=== PATIENT | male | born 1975 | race Caucasian/White ===

== ENCOUNTER 2022-11-27 06:34 | Outpatient (OUT) | payer OTHER, SELFPAY ==
[2022-11-27 07:43] LABS: Basophils Percent Auto 0.8 % (0.2-2.0); Eosinophils Absolute Auto 0.1 10^3/uL (0.0-0.7); Eosinophils Percent Auto 1.8 % (0.9-7.0); Hematocrit 45.1 % (42.0-54.0); Hemoglobin 15.2 g/dL (14.0-18.0); Lymphocytes Absolute Auto 2.2 10^3/uL (1.2-3.8); Lymphocytes Percent Auto 44.3 % (20.5-60.0); Mean Corpuscular HGB Conc 33.7 g/dL (29.9-35.2); Mean Corpuscular Volume 89.1 fL (80.0-94.0); Mean Platelet Volume 9.5 fL (9.5-13.5); Monocytes Absolute Auto 0.5 10^3/uL (0.3-0.8); Monocytes Percent Auto 9.1 % (1.7-12.0); Neutrophils Absolute Auto 2.2 10^3/uL (1.4-6.5); Platelet Count 282 10^3/uL (150-450); Red Blood Count 5.06 10^6/uL (4.70-6.10); Red Cell Distribution Width 11.8 % (11.0-15.0)
[2022-11-27 08:03] LABS: Alanine Aminotransferase 21 U/L (16-63); Albumin Globulin Ratio 1.2; Albumin Level 3.9 g/dL (3.4-5.0); Alkaline Phosphatase 97 U/L (46-116); Anion Gap 13.2; Aspartate Amino Transferase 13 U/L (15-37); BUN Creatinine Ratio 20.9; Bilirubin Total 0.4 mg/dL (0.2-1.0); Calcium 8.9 mg/dL (8.5-10.1); Chloride 104 mmol/L (98-107); Chol HDL Ratio 4.3; Cholesterol 163 mg/dL (<=200); Estimated GFR (African America >60 (>=60); Estimated GFR (Non-African Ame >60 (>=60); Globulin 3.3 g/dL; Glucose 91 mg/dL (74-106); HDL Cholesterol 38 mg/dL (40-60); Potassium 4.2 mmol/L (3.5-5.1); Sodium 141 mmol/L (136-145); Total Protein 7.2 g/dL (6.4-8.2); Triglycerides 123 mg/dL (<=150); VLDL CHOLESTEROL 24.6 mg/dL
== END 2022-11-27 06:35 | disposition home or self-care (01) ==
PROVIDERS: PCP Family Medicine; Visit Provider Family Medicine
DX: Z00.00 Encounter for general adult medical examination without abnormal findings (principal)
CPT/HCPCS: 36415; 80053; 80061; 85025

== ENCOUNTER 2023-12-12 06:32 | Outpatient (OUT) | payer OTHER, SELFPAY ==
--- OUTSIDE RECORDS SUMMARY | 2023-12-02 06:35 | XMS_ITS | CCD ---
Author Organization [facility] Care Team Providers Care Senior Online Marketing Manager Name Role Phone DR NAVEEN DELCID Attending Unavailable DR NAVEEN DELCID Consulting Unavailable DR NAVEEN DELCID Primary Care Unavailable DR NAVEEN DELCID Admitting Unavailable Naveen Delcid Unavailable Maxim Serrano Unavailable Allergies Allergy Classification Reported Allergen(s) Allergy Type Date of Onset Reaction(s) Facility (7 sources) Acetaminophen / HYDROcodone Drug Allergy Unknown [facility] (3 sources) Coconut extract Drug Allergy 05-05-19 24 Unknown Reaction [facility] (11 sources) Coconut Flavor Drug allergy Unknown [facility] Other (7 sources) Vicodin *ANALGESICS - OPIOID* Propensity to adverse reactions 05-20-19 14 Unknown [facility] Other (2 sources) patient allergy list reviewed by nurse or physicia Propensity to adverse reactions 04-08-19 19 Comment:Done [employer] Other (2 sources) Allergies Reconciled Propensity to adverse reactions Unknown [employer] Other (2 sources) Acetaminophen Drug Allergy 05-05-19 24 Unknown Reaction [facility] (2 sources) HYDROcodone Drug Allergy 05-05-19 24 Unknown Reaction [facility] Medications Current Medications Medication Drug Class(es) Dates Sig (Normalized) Sig (Original) acetaminophen 325 mg / oxyCODONE hydrochloride 5 mg oral tablet (16 sources) Opioid Agonist Start: 2023 End: 08-05-2023 take 1 tablet by mouth once daily Oxycodone-Acetami nophen Active 1 TAB PO Daily August 05, 2023 Start: 05-04-2023 End: 2023 take 1 tablet by mouth every six hours Oxycodone-Acetaminophen Discontinued 1 T AB PO Every 6 hours May 04, 2023 12:00am 2023 2:26pm Start: 03-03-2023 take 1 tablet by erin th every six hours as needed Percocet 5-325 MG 1 tablet as needed Orally every 6 hrs prn for 30 days Feb, Active Start: 01-05-2023 take 1 tablet by erin th every six hours as needed Percocet 5-325 MG 1 tablet as needed Orally every 6 hrs prn for 30 days Dec, Active Start: 11-07-2022 take 1 tablet by erin th every six hours as needed Percocet 5-325 MG 1 tablet as needed Orally every 6 hrs prn for 30 days Oct, Active Start: 09-11-2022 take 1 tablet by erin th every six hours as needed Percocet 5-325 MG 1 tablet as needed Orally every 6 hrs prn for 30 days Sep, Active Start: 07-23-2022 take 1 tablet by erin th every six hours as needed Percocet 5-325 MG 1 tablet as needed Orally every 6 hrs prn for 30 days Jul, Active Start: 05-28-2022 take 1 tablet by erin th every six hours as needed Percocet 5-325 MG 1 tablet as needed Orally every 6 hrs prn for 30 days May, Active Start: 04-15-2022 take 1 tablet by erin th every six hours as needed Percocet 5-325 MG 1 tablet as needed Orally every 6 hrs prn for 30 days Apr, Active Start: 02-25-2022 take 1 tablet by erin th every six hours as needed Percocet 5-325 MG 1 tablet as needed Orally every 6 hrs prn for 30 days Feb, Active amoxicillin 500 mg oral capsule (5 sources) Penicillin-class Antibacterial Start: 11-27-2022 take 1 capsule by mouth every twelve hours Amoxicillin 500 MG 1 capsule Orally Twice a day for 7 days Nov, Active azithromycin 250 mg oral tablet (2 sources) Macrolide Antimicrobial Start: 02-16-2023 Azithromycin 250 MG as directed Orally 2 tabs po today, then 1 tab daily x 4 more days for 5 Feb, Active benzonatate 200 mg oral capsule (2 sources) Non-narcotic Antitussive Start: 02-16-2023 take 1 capsule by mouth every eight hours Benzonatate 200 MG 1 capsule Orally Three times a day for 10 day(s) Feb, Active cephalexin 500 mg oral capsule (1 source) Cephalosporin Antibacterial Start: 08-28-2023 take 500 mg by mouth three times daily Cephalexin Active 500 MG PO Three times daily 29 08August 28, 2023 12:00am 0.3 ml EPINEPHrine 1 mg/ml prefilled syringe (13 sources) alpha-Adrenergic Agonist, beta-Adrenergic Agonist, Catecholamine Start: 05-04-2023 Epinephrine Active IM May 04, 2023 12:00am as directed Injection prn EPINEPHrine 0.3 MG/0.3ML as directed Injection prn for 30 days Active EPINEPHrine 0.3 MG/0.3ML as directed Injection Active tadalafil 10 mg oral tablet (5 sources) Phosphodiesterase 5 Inhibitor Start: 11-27-2022 take 1 tablet by mouth every twenty-four hours Cialis 10 MG 1 tablet as needed Orally Once a day for 30 days Nov, Active valACYclovir 1000 mg oral tablet (13 sources) Herpesvirus Nucleoside Analog DNA Polymerase Inhibitor, Herpes Simplex Virus Nucleoside Analog DNA Polymerase Inhibitor, Herpes Zoster Virus Nucleoside Analog DNA Polymerase Inhibitor Start: 05-04-2023 Valacyclovir (Valtrex) 1 gram tablet Active 1000 MG PO Daily May 04, 2023 12:00am take 1 tablet by erin th every twenty-four hours Valtrex 1 GM 1 tablet Orally Once a day Not-Taking/PRN take 1 tablet by erin th every twenty-four hours Valtrex 1 GM 1 tablet Orally Once a day Not-Taking Problems Active Problems Problem Classification Problem Date Documented Date Episodic/Chronic Adjustment disorders (15 sources) Stress; Translations: [Reaction to severe stress, unspecified] 05-04-2023 Chronic Allergic reactions (13 sources) Allergy to bee venom; Translations: [Bee allergy status] Episodic Anxiety disorders (2 sources) Anxiety disorder; Translations: [Anxiety disorder, unspecified] Onset: 05-19-2013 Chronic Chronic obstructive pulmonary disease and bronchiectasis (14 sources) Bronchitis; Translations: [Bronchitis, not specified as acute or chronic] Episodic Disorders of teeth and jaw (14 sources) Infection of tooth; Translations: [Periapical abscess without sinus] Episodic Immunizations and screening for infectious disease (16 sources) Encounter for screening for infections with a predominantly sexual mode of transmission; Translations: [Herpes simplex type 2 infection] Onset: 08-13-2021 Episodic Miscellaneous mental health disorders (2 sources) Psychosexual dysfunction associated with inhibited sexual excitement; 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] Onset: 01-30-2015 Chronic Other circulatory disease (2 sources) Elevated blood-pressure reading without diagnosis of hypertension; Translations: [Elevated blood-pressure reading, without diagnosis of hypertension] Episodic Other connective tissue disease (2 sources) Pain in limb; Translations: [Pain in left finger(s)] Episodic Other male genital disorders (8 sources) Other male erectile dysfunction; Translations: [Other male erectile dysfunction] Chronic Other nutritional; endocrine; and metabolic disorders (11 sources) Overweight in adulthood with body mass index of 25 or more but less than 30; Translations: [Body mass index (BMI) 25.0-25.9, adult] Episodic Other nutritional; endocrine; and metabolic disorders (2 sources) Body mass index 25-29 - overweight; Translations: [Body mass index (BMI) 25.0-25.9, adult] Episodic Other skin disorders (1 source) Other seborrheic keratosis Episodic Otitis media and related conditions (20 sources) Dysfunction of eustachian tube; Translations: [Other specified disorders of Eustachian tube, unspecified ear] Episodic Residual codes; unclassified (17 sources) Tobacco user; Translations: [Tobacco use] Onset: 04-14-2017 05-04-2023 Episodic Spondylosis; intervertebral disc disorders; other back problems (20 sources) Lumbosacral radiculopathy; Translations: [Radiculopathy, lumbosacral region] Onset: 05-19-2013 Episodic Substance-related disorders (2 sources) Tobacco user; Translations: [Nicotine dependence, cigarettes, uncomplicated] Onset: 10-22-2015 Chronic Past or Other Problems Problem Classification Problem Date Documented Da te Episodic/Chronic Other aftercare (2 sources) Therapeutic drug level - finding; Translations: [Encounter for therapeutic drug level monitoring] Onset: 05-19-2013 Episodic Other non-traumatic joint disorders (2 sources) Hand joint pain; Translations: [Pain in joint, hand] Onset: 09-13-2013 Episodic Sprains and strains (2 sources) Neck sprain; Translations: [Neck sprain and strain] Onset: 05-19-2013 Episodic Results Test Name Value Interpretation Reference Range Qing mejia HERPES SIMPLEX 1/2 IGGon HSV 1 IgG, Type Spec 2.45 index Critically high 0.00-0.90 [facility] Comment on above: Result Comment: Nega tive <0.91 Equivocal 0.91 - 1.09 Positive >1.09 Note: Negative indicates no antibodies detected to HSV-1. Equivocal may suggest early infection. If clinically appropriate, retest at later date. Positive indicates antibodies detected to HSV-1. Performed By: #### H SV IGG #### [facility] [address] [address] [address] Sánchez Hanley HSV 2 IgG Type Spec 2.41 index Critically high 0.00-0.90 [facility] Comment on above: Result Comment: Nega tive <0.91 Equivocal 0.91 - 1.09 Positive >1.09 Note: Negative indicates no HSV-2 antibodies detected. Positive indicates HSV-2 antibodies detected. Equivocal and low positive HSV-2 screens (Index 0.91-5.00) may be false positive and are reflexed to supplemental testing in accordance with CDC guidelines. Performed By: #### H SV IGG #### [facility] [address] [address] [address] Sánchez Hanley HSV-2 IgG Supplemental Test Positive Abnormal Negative [facility] Comment on above: Result Comment: Note : Positive supplemental testing indicates the presence of detectable IgG antibodies to HSV-2. Negative supplemental testing does not confirm the presence of IgG antibodies to HSV-2; recommend re-testing in 2 to 4 weeks if clinically indicated. Performed By: #### H SV IGG #### [facility] [address] [address] [address] Sánchez Hanley HERPES SIMPLEX 1/2 IGMon HSV, IgM I/II Combination <0.91 Normal 0.00-0.90 [facility] Comment on above: Result Comment: Nega tive <0.91 Equivocal 0.91 - 1.09 Positive >1.09 Effective November 04, 2021 HSV, IgM I/II Combination will be made non-orderable. [facility] offers [id number] HSV 1 and 2-Spec Ab, IgG w/Rfx and [id number] HSV JOHN. Performed By: #### H SVIGM #### [facility] [address] [place] [address] Dr. Sánchez Hanley CBC AUTO DIFFon 08-08-2021 BASO # 0.0 103/ul Normal 0.0-0.1 [facility] Comment on above: Performed By: #### C BC #### [facility] [address] [place] [address] Dr. Sánchez Hanley Basophils/100 WBC (Bld) 0.5 % Normal 0.2-2.0 [facility] Comment on above: Performed By: #### C BC #### [facility] [address] [place] [address] Dr. Sánchez Hanley EO # 0.1 103/ul Normal 0.0-0.7 [facility] Comment on above: Performed By: #### C BC #### [facility] [address] [place] [address] Dr. Sánchez Hanley Eosinophils/100 WBC (Bld) 1.6 % Normal 0.9-7.0 [facility] Comment on above: Performed By: #### C BC #### [facility] [address] [place] [address] Dr. Sánchez Hanley Erythrocyte distribution width (RBC) [Ratio] 12.0 % Normal 11.0-15.0 [facility] Comment on above: Performed By: #### C BC #### [facility] [address] [place] [address] Dr. Sánchez Hanley Hematocrit (Bld) [Volume fraction] 43.6 % Normal 42.0-54.0 [facility] Comment on above: Performed By: #### C BC #### [facility] [address] [place] [address] Dr. Sánchez Hanley Hemoglobin (Bld) [Mass/Vol] 14.5 g/dL Normal 14.0-18.0 [facility] Comment on above: Performed By: #### C BC #### [facility] [address] [place] [address] Dr. Sánchez Hanley IG # 0.02 10e3/ul Normal 0.00-0.03 [facility] Comment on above: Performed By: #### C BC #### [facility] [address] [place] [address] Dr. Sánchez Hanley IG % 0.3 % Normal 0.0-0.5 [facility] Comment on above: Performed By: #### C BC #### [facility] [address] [place] [address] Dr. Sánchez Hanley LYMPH # 2.3 103/ul Normal 1.2-3.8 [facility] Comment on above: Performed By: #### C BC #### [facility] [address] [place] [address] Dr. Sánchez Hanley Lymphocytes/100 WBC (Bld) 29.8 % Normal 20.5-60.0 [facility] Comment on above: Performed By: #### C BC #### [facility] [address] [place] [address] Dr. Sánchez Hanley MANUAL DIFF REQ NO Normal [facility] Comment on above: Performed By: #### C BC #### [facility] [address] [place] [address] Dr. Sánchez Hanley MCH (RBC) [Entitic mass] 29.8 pg Normal 25.9-34.0 [facility] Comment on above: Performed By: #### C BC #### [facility] [address] [place] [address] Dr. Sánchez Hanley MCHC (RBC) [Mass/Vol] 33.3 g/dL Normal 29.9-35.2 [facility] Comment on above: Performed By: #### C BC #### [facility] [address] [place] [address] Dr. Sánchez Hanley MCV (RBC) [Entitic vol] 89.5 fL Normal 80.0-94.0 [facility] Comment on above: Performed By: #### C BC #### [facility] [address] [place] [address] Dr. Sánchez Hanley MONO # 0.6 103/ul Normal 0.3-0.8 [facility] Comment on above: Performed By: #### C BC #### [facility] [address] [place] [address] Dr. Sánchez Hanley Monocytes/100 WBC (Bld) 7.8 % Normal 1.7-12.0 [facility] Comment on above: Performed By: #### C BC #### [facility] [address] [place] [address] Dr. Sánchez Hanley NEUT # 4.7 103/ul Normal 1.4-6.5 [facility] Comment on above: Performed By: #### C BC #### [facility] [address] [place] [address] Dr. Sánchez Hanley Neutrophils/100 WBC (Bld) 60.0 % Normal 43.0-75.0 [facility] Comment on above: Performed By: #### C BC #### [facility] [address] [place] [address] Dr. Sánchez Hanley Platelet mean volume (Bld) [Entitic vol] 9.0 fL Critically low 9.5-13.5 [facility] Comment on above: Performed By: #### C BC #### [facility] [address] [place] [address] Dr. Sánchez Hanley PLT 240 103/ul Normal 150-450 [facility] Comment on above: Performed By: #### C BC #### [facility] [address] [place] [address] Dr. Sánchez Hanley RBC 4.87 106/ul Normal 4.70-6.10 [facility] Comment on above: Performed By: #### C BC #### [facility] [address] [place] [address] Dr. Sánchez Hanley WBC 7.7 103/ul Normal 4.0-11.0 [facility] Comment on above: Performed By: #### C BC #### [facility] [address] [place] [address] Dr. Sánchez Hanley LIPID PROFILEon 08-08-2021 CHOL-HDL RATIO NORM SEE BELOW Normal [facility] Comment on above: Result Comment: 3.3 - 4.4 LOW RISK 4.4 - 7.1 AVERAGE RISK 7.1 - 11.0 MODERATE RISK >11.0 HIGH RISK Performed By: #### C MP, LIPID #### [facility] [address] [address] [address] Sánchez Hanley Cholesterol [Mass/Vol] 166 mg/dL Normal <=200 [facility] Comment on above: Performed By: #### C MP, LIPID #### [facility] [address] [address] [address] Sánchez Hanley Cholesterol in HDL [Mass/Vol] 34 mg/dL Critically low 40-60 [facility] Comment on above: Performed By: #### C MP, LIPID #### [facility] [address] [address] [address] Sánchez Hanley Cholesterol in LDL [Mass/Vol] 108.8 mg/dL Normal [facility] Comment on above: Performed By: #### C MP, LIPID #### [facility] [address] [address] [address] Sánchez Hanley Cholesterol.total/C holesterol in HDL [Mass ratio] 4.9 {ratio} Normal [facility] Comment on above: Performed By: #### C MP, LIPID #### [facility] [address] [address] [address] Sánchez Hanley HDL NORMAL > or = 60 mg/dl - LO W CARDIOVASCULAR RISK <40 mg/dl - HIGH CARDIOVASCULAR RISK Normal [facility] Comment on above: Performed By: #### C MP, LIPID #### [facility] [address] [address] [address] Sánchez Hanley LDL CALC NORMAL SEE BELOW Normal [facility] Comment on above: Result Comment: <100 mg/dl OPTIMAL 100 - 129 mg/dl NEAR OR ABOVE OPTIMAL 130 - 159 mg/dl BORDERLINE HIGH 160 - 189 mg/dl HIGH >190 mg/dl VERY HIGH Performed By: #### C MP, LIPID #### [facility] [address] [address] [address] Sánchez Hanley Triglyceride [Mass/Vol] 116 mg/dL Normal <=150 [facility] Comment on above: Performed By: #### C MP, LIPID #### [facility] [address] [address] [address] Sánchez Hanley VLDL CALC 23.2 mg/dL Normal [facility] Comment on above: Performed By: #### C MP, LIPID #### [facility] [address] [place] [address] Dr. Sánchez Hanley PROF 14(COMP METB)on 022 Albumin [Mass/Vol] 3.8 g/dL Normal 3.4-5.0 [facility] Comment on above: Performed By: #### C MP, LIPID #### [facility] [address] [place] [address] Dr. Sánchez Hanley Albumin/Globulin [Mass ratio] 1.2 {ratio} Normal [facility] Comment on above: Performed By: #### C MP, LIPID #### [facility] [address] [place] [address] Dr. Sánchez Hanley ALP [Catalytic activity/Vol] 91 U/L Normal 46-116 [facility] Comment on above: Performed By: #### C MP, LIPID #### [facility] [address] [place] [address] Dr. Snáchez Hanley ALT [Catalytic activity/Vol] 27 U/L Normal 16-63 [facility] Comment on above: Performed By: #### C MP, LIPID #### [facility] [address] [place] [address] Dr. Sánchez Hanley Anion gap [Moles/Vol] 10.4 mmol/L Normal [facility] Comment on above: Performed By: #### C MP, LIPID #### [facility] [address] [place] [address] Dr. Sánchez Hanley AST [Catalytic activity/Vol] 24 U/L Normal 15-37 [facility] Comment on above: Performed By: #### C MP, LIPID #### [facility] [address] [place] [address] Dr. Sánchez Hanley Bilirubin [Mass/Vol] 0.2 mg/dL Normal 0.2-1.0 [facility] Comment on above: Performed By: #### C MP, LIPID #### [facility] [address] [place] [address] Dr. Sánchez Hanley Calcium [Mass/Vol] 8.9 mg/dL Normal 8.5-10.1 [facility] Comment on above: Performed By: #### C MP, LIPID #### [facility] [address] [place] [address] Dr. Sánchez Hanley Chloride [Moles/Vol] 108 mmol/L Critically high 98-107 [facility] Comment on above: Performed By: #### C MP, LIPID #### [facility] [address] [place] [address] Dr. Sánchez Hanley CO2 [Moles/Vol] 27.7 mmol/L Normal 21.0-32.0 [facility] Comment on above: Performed By: #### C MP, LIPID #### [facility] [address] [place] [address] Dr. Sánchez Hanley Creatinine [Mass/Vol] 0.86 mg/dL Normal 0.70-1.30 [facility] Comment on above: Performed By: #### C MP, LIPID #### [facility] [address] [place] [address] Dr. Sánchez Hanley EGFR-AF NEW ZEALANDER >60 Normal >=60 [facility] Comment on above: Performed By: #### C MP, LIPID #### [facility] [address] [place] [address] Dr. Sánchez Hanley EGFR-NON AF [place] ZEALANDER >60 Normal >=60 [facility] Comment on above: Performed By: #### C MP, LIPID #### [facility] [address] [place] [address] Dr. Sánchez Hanley Globulin (S) [Mass/Vol] 3.3 g/dL Normal [facility] Comment on above: Performed By: #### C MP, LIPID #### [facility] [address] [place] [address] Dr. Sácnhez Hanley Glucose [Mass/Vol] 96 mg/dL Normal 74-106 [facility] Comment on above: Performed By: #### C MP, LIPID #### [facility] [address] [address] [address] Sánchez Hanley Potassium [Moles/Vol] 4.1 mmol/L Normal 3.5-5.1 [facility] Comment on above: Performed By: #### C MP, LIPID #### [facility] [address] [address] [address] Sánchez Hanley Protein [Mass/Vol] 7.1 g/dL Normal 6.4-8.2 [facility] Comment on above: Performed By: #### C MP, LIPID #### [facility] [address] [address] [address] Sánchez Hanley Sodium [Moles/Vol] 142 mmol/L Normal 136-145 [facility] Comment on above: Performed By: #### C MP, LIPID #### [facility] [address] [address] [address] Sánchez Hanley Urea nitrogen [Mass/Vol] 20.0 mg/dL Critically high 7.0-18.0 [facility] Comment on above: Performed By: #### C MP, LIPID #### [facility] [address] [address] [address] Sánchez Hanley Urea nitrogen/Creatinine [Mass ratio] 23.3 mg/mg Normal [facility] Comment on above: Performed By: #### C MP, LIPID #### [facility] [address] [address] [address] Sánchez Hanley Vital Signs Date Time Vital Sign Value Performing Clinician Facility 08-28-2023 14: Body height 176.53 cm [facility] 08-28-2023 14:040 Body mass index (BMI) [Ratio] 26.4 kg/m2 [facility] 08-28-2023 14:25-040 Body temperature 97.7 [degF] [facility] 08-28-2023 14:040 Body weight 82.55 kg [facility] 08-28-2023 14:25040 Diastolic blood pressure 89 mm[Hg] [facility] 08-28-2023 14:25-0400 Heart rate 84 /min [facility] 08-28-2023 14:25-0400 Systolic blood pressure 149 mm[Hg] [facility] 2023 13:55-0400 Body height 176.53 cm [facility] 2023 13:55-0400 Body mass index (BMI) [Ratio] 26.6 kg/m2 [facility] 2023 13:55-0400 Body weight 83.17 kg [facility] 2023 13:55-0400 Diastolic blood pressure 83 mm[Hg] [facility] 2023 13:55-0400 Heart rate 91 /min [facility] 2023 13:55-0400 Systolic blood pressure 129 mm[Hg] [facility] 11-27-2022 09:30-0400 Body height 176.53 cm Naveen Delcid Other [employer] [facility] [employer] Other 11-27-2022 09:30-0400 Body mass index (BMI) [Ratio] 27.01 kg/m2 Naveen Delcid Other [employer] Other 11-27-2022 09:30-0400 Body weight 84.19 kg Naveen Delcid Other [employer] Other 11-27-2022 09:30-0400 Diastolic blood pressure 86 mm[Hg] Naveen Delcid Other [employer] Other 11-27-2022 09:30-0400 Systolic blood pressure 136 mm[Hg] Naveen Delcid Other [employer] Other 02-25-2022 14:45-0500 Body height 176.53 cm Naveen Delcid Other [employer] Other 02-25-2022 14:45-0500 Body mass index (BMI) [Ratio] 27.8 kg/m2 Naveen Delcid Other [employer] Other 02-25-2022 14:45-0500 Body weight 86.64 kg Naveen Delcid Other [employer] Other 02-25-2022 14:45-0500 Diastolic blood pressure 88 mm[Hg] Naveen Delcid Other [employer] Other 02-25-2022 14:45-0500 SaO2% (BldA) [Mass fraction] 98 % Naveen Delcid Other [employer] Other 02-25-2022 14:45-0500 Systolic blood pressure 138 mm[Hg] Naveen Delcid Other [employer] Other Encounters Encounter Date Encounter Type Care Provider Facility Start: 08-28-2023 End: 08-28-2023 ambulatory [facility] Work Phone: Start: 08-28-2023 End: 08-28-2023 Patient encounter procedure [facility] Physician [facility] Work Phone: Start: 2023 End: 2023 ambulatory [facility] Work Phone: Start: 2023 End: 2023 Patient encounter procedure [facility] Physician [place] [facility] Work Phone: Start: 05-04-2023 Non-patient / Non-visit [facility] Physician [facility] [employer] Work Phone: Start: 03-03-2023 End: 03-03-2023 ambulatory Naveen Delcid Other [employer] Other Start: 03-03-2023 Telephone encounter Naveen Delcid [facility] Start: 02-16-2023 End: 02-16-2023 ambulatory Naveen Delcid Other [employer] Other Start: 02-16-2023 Office outpatient vi sit 15 minutes Naveenelpidio Delcid [facility] Start: 01-05-2023 End: 01-05-2023 ambulatory Naveen Delcid Other [employer] Other Start: 01-05-2023 Telephone encounter Naveen Bhavin [facility] Start: 12-04-2022 End: 12-04-2022 ambulatory Naveen Delcid Other [employer] Other Start: 12-04-2022 Telephone encounter Naveen Bhavin [facility] Start: 11-27-2022 End: 11-27-2022 ambulatory Naveen Bhavin Other [employer] Other Start: 11-27-2022 Encounter for genera l adult medical examination without abnormal findings Naveen Bhavin [facility] Start: 11-27-2022 Periodic preventive med est patient 40-64yrs Naveen Bhavin [facility] Start: 11-06-2022 End: 11-06-2022 ambulatory Naveen Bhavin Other [employer] Other Start: 11-06-2022 Telephone encounter Naveen Bhavin [facility] Start: 09-11-2022 End: 09-11-2022 ambulatory Maxim Serrano Other [employer] Other Start: 09-11-2022 Telephone encounter Maxim [facility] Start: 07-23-2022 End: 07-23-2022 ambulatory Naveen Bhavin Other [employer] Other Start: 07-23-2022 Telephone encounter Naveen Delcid [facility] Start: 05-27-2022 End: 05-27-2022 ambulatory Naveen Bhavin Other [employer] Other Start: 05-27-2022 Telephone encounter Naveen Delcid [facility] Start: 04-15-2022 End: 04-15-2022 ambulatory Naveen Delcid Other [employer] Other Start: 04-15-2022 Telephone encounter Naveen Delcid [facility] Start: 02-25-2022 End: 02-25-2022 ambulatory Naveen Delcid Other [employer] Other Start: 02-25-2022 Office outpatient vi sit 15 minutes Naveen Delcid [facility] Start: 02-21-2022 Patient encounter status Naveen Delcid Other [employer] Other Start: 08-13-2021 Encounter for genera l adult medical examination without abnormal findings DR NAVEEN DELCID [facility] Start: 08-08-2021 End: 08-09-[address] NAVEEN DELCID Facility:[id number] Start: 08-08-2021 End: 08-09-2021 Encounter for general adult medical examination without abnormal findings DR NAVEEN DELCID Facility:[facility] Start: 08-07-2021 Adult health examination Maxim Serrano Other [employer] Other Start: 08-08-2020 Problem, abnormal examination Maxim Serrano Other [employer] Other Payers Date Payer Category Payer Unknown [id number] 1961 Private Health Insurance [id number] Unknown [facility] [id number] Social History Date Type Detail Facility Unknown if ever smoked [employer] Other Sex Assigned At Sex Assigned At Bir th [employer] Other Start: 1975 Sex Assigned At Male [facility] Clinical Notes 02-25-2022 to 03-03-2023 Note Date & Type Note Facility 03-03-2023 Evaluation note Encounter Date Diagnosis Assessment Notes Feb, Radiculopathy, lumbosacral region (ICD-10 - M54.17) [employer] Other 01-08-2024 Evaluation note* Encounter Date Diagnosis Assessment Notes Treatment Notes Treatment Clinical Notes Feb, Bronchitis (ICD-10 - J40) Take antibiotic as directed. If develop wheezing, chest tightness, itching, bad cough, blue skin color, seizures, swelling of face, lips, tongue, or throat report to ED. [employer] Other 11-27-2023 Evaluation note* Encounter Date Diagnosis Assessment Notes Treatment Notes Treatment Clinical Notes Dec, Radiculopathy, lumbosacral region (ICD-10 - M54.17) [employer] Other 10-19-2023 Evaluation note* Encounter Date Diagnosis Assessment Notes Treatment Notes Treatment Clinical Notes Nov, Well adult exam (ICD-10 - Z00.00) We have discussed the necessity of following up with PCP regularly as well as specialists, as needed. Discussed F/U with dentistry and optometry at least yearly. Discussed all preventative measures/ cancer screenings as applicable to this patient. Emphasized the importance of a reduced fat, low carb diet to promote heart health and controlled blood sugars. Reviewed social history and ensured patient is safe within the home today. Pt denies any abuse of alcohol, nicotine, caffeine or recreational drugs. I have ensured patient is of stable mental and physical health today. We have discussed appropriate F/U schedule as well as blood work and vaccinations that apply. All questions answered and patient is sent home pleased, without concerns. Nov, Dental infection (ICD-10 - K04.7) Gave number for several dentists in the area. Treated with antibiotics at this time. Nov, Other male erectile dysfunction (ICD-10 - N52.8) Patient requests refill of Cialis. We will send into pharmacy and check cost. [employer] Other 09-28-2023 Evaluation note* Encounter Date Diagnosis Assessment Notes Treatment Notes Treatment Clinical Notes Oct, Radiculopathy, lumbosacral region (ICD-10 - M54.17) [employer] Other 08-03-2023 Evaluation note* Encounter Date Diagnosis Assessment Notes Treatment Notes Treatment Clinical Notes Sep, Radiculopathy, lumbosacral region (ICD-10 - M54.17) [employer] Other 06-14-2023 Evaluation note* Encounter Date Diagnosis Assessment Notes Treatment Notes Treatment Clinical Notes Jul, Radiculopathy, lumbosacral region (ICD-10 - M54.17) [employer] Other 04-18-2023 Evaluation note* Encounter Date Diagnosis Assessment Notes Treatment Notes Treatment Clinical Notes May, Radiculopathy, lumbosacral region (ICD-10 - M54.17) [employer] Other 03-07-2023 Evaluation note* Encounter Date Diagnosis Assessment Notes Treatment Notes Treatment Clinical Notes Apr, Radiculopathy, lumbosacral region (ICD-10 - M54.17) [employer] Other 01-17-2023 Evaluation note* Encounter Date Diagnosis Assessment Notes Treatment Notes Treatment Clinical Notes Feb, Radiculopathy, lumbosacral region (ICD-10 - M54.17) Patient counseled that if pain worsens or does not improve, further testing, such as an MRI or EMG may be needed. Patient has continued need for Percocet. An OARRS report was processed and reviewed and shows no violations, as well as an opioid risk assessment being completed without concerns. He/She denies any significant opioid related side effects and appears to be compliant with this medication. The patient was counseled and educated regarding the risks and benefits of intermediate opioid use. He/She understands the associated risks with this medication and agrees that it provides reasonable benefit in regards to his/her pain control and level of function. This medication was refilled today. Feb, Seborrheic keratosis (ICD-10 - L82.1) Advised self referral to derm for removal. [employer] Other Evaluation noteNo [employer] Other Evaluation noteNo assessment information available [facility] Work Phone: History general Narrative - Reported* Type Description Date Medical History HSV-2 seropositive Medical History radiculopathy, lumbosacral regio n Medical History situational stress Medical History eustachian tube dysfunction Medical History dental infection [employer] Other History general Narrative - Reported* Type Description Date Medical History HSV-2 seropositive Medical History radiculopathy, lumbosacral regio n Medical History situational stress Medical History eustachian tube dysfunction Medical History dental infection Surgical History Problem Title : past surgical history reviewed, Problem Description : past surgical history reviewed, Problem Comment : reviewed - no changes required, Problem Status : Active, Surgical History Problem Title : surg ical procedures, hx of, Problem Description : surgical procedures, hx of, Problem Comment : none, Problem Status : Active, [employer] Other Summary Purpose Family History Relationship Condition Age at Onset Recorded Date/T feli father Unknown Heart disease Unknown Not Specified Unknown Relationship Condition Age at Onset Recorded Date/T feli father Unknown Heart disease Unknown mother Unknown Advance Directives Advance Directive Response Recorded Date/ Time Advance Directives No May 03 1:43pm Chief Complaint and Reason for Visit Chief Complaint Amb Documentation medication check up Chief Complaint hard to swallow Additional Source Comments (unrecognized sect ion and content) No Status Records Found INFORMATION SOURCE (unrecogn ized section and content) DATE CREATED AUTHOR 01/20/2022 [facility] REASON FOR VISIT (unrecogniz ed section and content) check upPRESCRIPTION REFILLr efillRefillRefillRefillWellnesslabsrefillsinus infectionrefill Care Teams (unrecognized sec tion and content) Team Status: Active Member Role Status Dates Naveen Delcid MD Primary Care Provider Active Team Status: Inactive Member Role Status Dates Naveen Delcid MD Primary Care Provide r, Attending Provider Active Start: August 28, 2023 End: August 28, 2023 Team Status: Active Member Role Status Dates Naveen Delcid MD Primary Care Provider Active Team Status: Active Member Role Status Dates Naveen Delcid MD Primary Care Provider Active Start: May 04, 2023 Kim Sainz , RMA Attending Provider Active Start : May 04, 2023 Team Status: Inactive Member Role Status Dates Naveen Delcid MD Primary Care Provide r, Attending Provider Active Start: 2023 End: 2023 Team Status: Inactive Member Role Status Dates Naveen Delcid MD Primary Care Provide r, Attending Provider Active Start: August 28, 2023 End: August 28, 2023 Goals (unrecognized section and content) Goals may be documented in a n alternate section FOR RECORDS PERTAINING TO PATIENTS WHO ARE OR HAVE BEEN ENROLLED IN A CHEMICAL DEPENDENCY/SUBSTANCEABUSE PROGRAM, SOME INFORMATION MAY BE OMITTED. This clinical summary was aggregated from multiple sources. Caution should be exercised in using it in the provision of clinical care. This summary normalizes information from multiple sources, and as a consequence, information in this document may materially change the coding, format and clinical context of patient data. In addition, data may be omitted in some cases. CLINICAL DECISIONS SHOULD BE BASED ON THE PRIMARY CLINICAL RECORDS. [facility] [employer] [facility]. provides no warranty or guarantee of the accuracy or completeness of information in this document.
--- OUTSIDE RECORDS SUMMARY | 2023-12-12 06:35 | XMS_ITS | CCD ---
Author Organization [facility] Care Team Providers Care Nanotechnology Engineering Technologist Name Role Phone DR NAVEEN DELCID Attending Unavailable DR NAVEEN DELCID Consulting Unavailable DR NAVEEN DELCID Primary Care Unavailable DR NAVEEN DELCID Admitting Unavailable Naveen Delcid Unavailable Maxim Serrano Unavailable Allergies Allergy Classification Reported Allergen(s) Allergy Type Date of Onset Reaction(s) Facility (7 sources) Acetaminophen / HYDROcodone Drug Allergy Unknown [facility] (4 sources) Coconut extract Drug Allergy 05-05-19 24 Unknown Reaction [facility] (11 sources) Coconut Flavor Drug allergy Unknown [employer] Other (7 sources) Vicodin *ANALGESICS - OPIOID* Propensity to adverse reactions 05-20-19 14 Unknown [employer] Other (2 sources) patient allergy list reviewed by nurse or physicia Propensity to adverse reactions 04-08-19 19 Comment:Done [employer] Other (2 sources) Allergies Reconciled Propensity to adverse reactions Unknown [employer] Other (3 sources) Acetaminophen Drug Allergy 05-05-19 24 Unknown Reaction [facility] (3 sources) HYDROcodone Drug Allergy 05-05-19 24 Unknown Reaction [facility] Medications Current Medications Medication Drug Class(es) Dates Sig (Normalized) Sig (Original) acetaminophen 325 mg / oxyCODONE hydrochloride 5 mg oral tablet (20 sources) Opioid Agonist Start: 2023 End: 11-27-2023 take 1 tablet by mouth once daily Oxycodone-Acetami nophen Active 1 TAB PO Daily November 27, 2023 Start: 05-04-2023 End: 2023 take 1 [...] a day for 10 day(s) Feb, Active 0.3 ml EPINEPHrine 1 mg/ml prefilled syringe (14 sources) alpha-Adrenergic Agonist, beta-Adrenergic Agonist, Catecholamine Start: 05-04-2023 Epinephrine Active IM May 04, 2023 12:00am as directed Injection prn EPINEPHrine 0.3 MG/0.3ML as directed Injection prn for 30 days Active EPINEPHrine 0.3 MG/0.3ML as directed Injection Active tadalafil 10 mg oral tablet (7 sources) Phosphodiesterase 5 Inhibitor Start: 09-23-2023 End: 09-23-2023 take 1 dose by mouth every twenty-four hours Tadalafil Active 10 MG PO Daily September 23, 2023 10:13am administer approximately 30min before sexual activity; do not use more than 1 dose per 24hrs Start: 11-27-2022 take 1 tablet by erin th every twenty-four hours Cialis 10 MG 1 tablet as needed Orally Once a day for 30 days Nov, Active valACYclovir 1000 mg oral tablet (14 sources) Herpesvirus Nucleoside Analog DNA Polymerase Inhibitor, Herpes Simplex Virus Nucleoside Analog DNA Polymerase Inhibitor, Herpes Zoster Virus Nucleoside Analog DNA Polymerase Inhibitor Start: 05-04-2023 Valacyclovir (Valtr ex) 1 gram tablet Active 1000 MG PO Daily May 04, 2023 12:00am take 1 tablet by erin th every twenty-four hours Valtrex 1 GM 1 tablet Orally Once a day Not-Taking/PRN take 1 tablet by erin th every twenty-four hours Valtrex 1 GM 1 tablet Orally Once a day Not-Taking Completed/Discontinued Medications Medication Drug Class(es) Dates Sig (Normalized) Sig (Original) cephalexin 500 mg oral capsule (2 sources) Cephalosporin Antibacterial Start: 08-28-2023 End: 12-10-2023 take 500 mg by mouth three times daily Cephalexin Discontinued 500 MG PO Three times daily 29 08August 28, 2023 12:00am December 10, 2023 8:43am Problems Active Problems Problem Classification Problem Date Documented Date Episodic/Chronic Adjustment disorders (16 sources) Stress; Translations: [Reaction to severe stress, [...] left finger(s)] Episodic Other male genital disorders (9 sources) Other male erectile dysfunction; Translations: [Other [...] mass index (BMI) 25.0-25.9, adult] Episodic Other screening for suspected conditions (not mental disorders or infectious disease) (2 sources) Patient encounter status; Translations: [Encounter for screening for malignant neoplasm of prostate] 12-10-2023 Episodic Other skin disorders (1 source) Other seborrheic keratosis Episodic Other upper respiratory infections (1 source) Acute maxillary sinusitis; Translations: [Acute maxillary sinusitis, unspecified] 09-03-2023 Episodic Otitis media and related conditions (20 sources) Dysfunction of eustachian tube; Translations: [Other specified disorders of Eustachian tube, unspecified ear] Episodic Residual codes; unclassified (18 sources) Tobacco user; Translations: [Tobacco use] Onset: [...] Results Test Name Value Interpretation Reference Range Facil ity HERPES SIMPLEX 1/2 IGGon HSV 1 IgG, Type Spec 2.45 index Critically high 0.00-0.90 [facility] Comment on above: Result Comment: Nega tive <0.91 Equivocal 0.91 - 1.09 Positive >1.09 Note: Negative indicates no antibodies detected to HSV-1. Equivocal may suggest early infection. If clinically appropriate, retest at later date. Positive indicates antibodies detected to HSV-1. Performed By: #### H SV IGG #### [facility] [address] [address] [address] Sánchez Hanley HSV 2 IgG Type Spec 2.41 index Critically high 0.00-0.90 [facility] Comment on above: Result Comment: Nega tive <0.91 Equivocal 0.91 - 1.09 Positive >1.09 Note: Negative indicates no HSV-2 antibodies detected. Positive indicates HSV-2 antibodies detected. Equivocal and low positive HSV-2 screens (Index 0.91-5.00) may be false positive and are reflexed to supplemental testing in accordance with CDC guidelines. Performed By: #### H SV IGG #### [facility] [address] [address] [address] Sánchez Hanley HSV-2 IgG Supplemental Test Positive Abnormal Negative [facility] Comment on above: Result Comment: Note : Positive supplemental testing indicates the presence of detectable IgG antibodies to HSV-2. Negative supplemental testing does not confirm the presence of IgG antibodies to HSV-2; recommend re-testing in 2 to 4 weeks if clinically indicated. Performed By: #### H SV IGG #### [facility] [address] [place] [address] Dr. Sánchez Hanley HERPES SIMPLEX 1/2 IGMon HSV, IgM I/II Combination <0.91 Normal 0.00-0.90 [facility] Comment on above: Result Comment: Nega tive <0.91 Equivocal 0.91 - 1.09 Positive >1.09 Effective November 04, 2021 HSV, IgM I/II Combination will be made non-orderable. [facility] offers [id number] HSV 1 and 2-Spec Ab, IgG w/Rfx and [id number] HSV JOHN. Performed By: #### H SVIGM #### [facility] [address] [place] [address] Dr. Sánchez Hanley CBC AUTO DIFFon 08-08-2021 BASO # 0.0 103/ul Normal 0.0-0.1 [facility] Comment on above: Performed By: #### C BC #### [facility] [address] [place] [address] Dr. Sánchez Hanley Basophils/100 WBC (Bld) 0.5 % Normal 0.2-2.0 [facility] Comment on above: Performed By: #### C BC #### [facility] [address] [place] [address] Dr. Sánchez Hanley EO # 0.1 103/ul Normal 0.0-0.7 [facility] Comment on above: Performed By: #### C BC #### [facility] [address] [place] [address] Dr. Sánchez Hanley Eosinophils/100 WBC (Bld) 1.6 % Normal 0.9-7.0 [facility] Comment on above: Performed By: #### C BC #### [facility] [address] [place] [address] Dr. Sánchez Hanley Erythrocyte distribution width (RBC) [Ratio] 12.0 % Normal 11.0-15.0 [facility] Comment on above: Performed By: #### C BC #### [facility] [address] [place] [address] Dr. Sánchez Hanley Hematocrit (Bld) [Volume fraction] 43.6 % Normal 42.0-54.0 [facility] Comment on above: Performed By: #### C BC #### [facility] [address] [place] [address] Dr. Sánchez Hanley Hemoglobin (Bld) [Mass/Vol] 14.5 g/dL Normal 14.0-18.0 [facility] Comment on above: Performed By: #### C BC #### [facility] [address] [place] [address] Dr. Sánchez Hanley IG # 0.02 10e3/ul Normal 0.00-0.03 [facility] Comment on above: Performed By: #### C BC #### [facility] [address] [place] [address] Dr. Sánchez Hanley IG % 0.3 % Normal 0.0-0.5 [facility] Comment on above: Performed By: #### C BC #### [facility] [address] [place] [address] Dr. Sánchez Hanley LYMPH # 2.3 103/ul Normal 1.2-3.8 [facility] Comment on above: Performed By: #### C BC #### [facility] [address] [place] [address] Dr. Sánchez Hanley Lymphocytes/100 WBC (Bld) 29.8 % Normal 20.5-60.0 [facility] Comment on above: Performed By: #### C BC #### [facility] [address] [place] [address] Dr. Sánchez Hanley MANUAL DIFF REQ NO Normal [facility] Comment on above: Performed By: #### C BC #### [facility] [address] [place] [address] Dr. Sánchez Hanley MCH (RBC) [Entitic mass] 29.8 pg Normal 25.9-34.0 [facility] Comment on above: Performed By: #### C BC #### [facility] [address] [place] [address] Dr. Sánchez Hanley MCHC (RBC) [Mass/Vol] 33.3 g/dL Normal 29.9-35.2 [facility] Comment on above: Performed By: #### C BC #### [facility] [address] [place] [address] Dr. Sánchez Hanley MCV (RBC) [Entitic vol] 89.5 fL Normal 80.0-94.0 [facility] Comment on above: Performed By: #### C BC #### [facility] [address] [place] [address] Dr. Sánchez Hanley MONO # 0.6 103/ul Normal 0.3-0.8 [facility] Comment on above: Performed By: #### C BC #### [facility] [address] [place] [address] Dr. Sánchez Hanley Monocytes/100 WBC (Bld) 7.8 % Normal 1.7-12.0 [facility] Comment on above: Performed By: #### C BC #### [facility] [address] [place] [address] Dr. Sánchez Hanley NEUT # 4.7 103/ul Normal 1.4-6.5 [facility] Comment on above: Performed By: #### C BC #### [facility] [address] [place] [address] Dr. Sánchez Hanley Neutrophils/100 WBC (Bld) 60.0 % Normal 43.0-75.0 [facility] Comment on above: Performed By: #### C BC #### [facility] [address] [place] [address] Dr. Sánchez Hanley Platelet mean volume (Bld) [Entitic vol] 9.0 fL Critically low 9.5-13.5 [facility] Comment on above: Performed By: #### C BC #### [facility] [address] [place] [address] Dr. Sánchez Hanley PLT 240 103/ul Normal 150-450 [facility] Comment on above: Performed By: #### C BC #### [facility] [address] [address] [address] Sánchez Hanley RBC 4.87 106/ul Normal 4.70-6.10 [facility] Comment on above: Performed By: #### C BC #### [facility] [address] [address] [address] Sánchez Hanley WBC 7.7 103/ul Normal 4.0-11.0 [facility] Comment on above: Performed By: #### C BC #### [facility] [address] [address] [address] Sánchez Hanley LIPID PROFILEon 08-08-2021 CHOL-HDL RATIO NORM SEE BELOW Normal [facility] Comment on above: Result Comment: 3.3 - 4.4 LOW RISK 4.4 - 7.1 AVERAGE RISK 7.1 - 11.0 MODERATE RISK >11.0 HIGH RISK Performed By: #### C MP, LIPID #### [facility] [address] [place] [address] Dr. Sánchez Hanley Cholesterol [Mass/Vol] 166 mg/dL Normal <=200 [facility] Comment on above: Performed By: #### C MP, LIPID #### [facility] [address] [place] [address] Dr. Sánchez Hanley Cholesterol in HDL [Mass/Vol] 34 mg/dL Critically low 40-60 [facility] Comment on above: Performed By: #### C MP, LIPID #### [facility] [address] [address] [address] Sánchez Hanley Cholesterol in LDL [Mass/Vol] 108.8 mg/dL Normal [facility] Comment on above: Performed By: #### C MP, LIPID #### [facility] [address] [place] [address] Dr. Sánchez Hanley Cholesterol.total/C holesterol in HDL [Mass ratio] 4.9 {ratio} Normal [facility] Comment on above: Performed By: #### C MP, LIPID #### [facility] [address] [place] [address] Dr. Sánchez Hanley HDL NORMAL > or = 60 mg/dl - LO W CARDIOVASCULAR RISK <40 mg/dl - HIGH CARDIOVASCULAR RISK Normal [facility] Comment on above: Performed By: #### C MP, LIPID #### [facility] [address] [address] [address] Sánchez Hanley LDL CALC NORMAL SEE BELOW Normal [facility] Comment on above: Result Comment: <100 mg/dl OPTIMAL 100 - 129 mg/dl NEAR OR ABOVE OPTIMAL 130 - 159 mg/dl BORDERLINE HIGH 160 - 189 mg/dl HIGH >190 mg/dl VERY HIGH Performed By: #### C MP, LIPID #### [facility] [address] [address] [address] Sánchez Hanley Triglyceride [Mass/Vol] 116 mg/dL Normal <=150 [facility] Comment on above: Performed By: #### C MP, LIPID #### [facility] [address] [address] [address] Sánchez Hanley VLDL CALC 23.2 mg/dL Normal [facility] Comment on above: Performed By: #### C MP, LIPID #### [facility] [address] [address] [address] Sánchez Hanley PROF 14(COMP METB)on 022 Albumin [Mass/Vol] 3.8 g/dL Normal 3.4-5.0 [facility] Comment on above: Performed By: #### C MP, LIPID #### [facility] [address] [address] [address] Sánchez Hanley Albumin/Globulin [Mass ratio] 1.2 {ratio} Normal [facility] Comment on above: Performed By: #### C MP, LIPID #### [facility] [address] [address] [address] Sánchez Hanley ALP [Catalytic activity/Vol] 91 U/L Normal 46-116 [facility] Comment on above: Performed By: #### C MP, LIPID #### [facility] [address] [address] [address] Sánchez Hanley ALT [Catalytic activity/Vol] 27 U/L Normal 16-63 [facility] Comment on above: Performed By: #### C MP, LIPID #### [facility] [address] [address] [address] Sánchez Hanley Anion gap [Moles/Vol] 10.4 mmol/L Normal [facility] Comment on above: Performed By: #### C MP, LIPID #### [facility] [address] [address] [address] Sánchez Hanley AST [Catalytic activity/Vol] 24 U/L Normal 15-37 [facility] Comment on above: Performed By: #### C MP, LIPID #### [facility] [address] [address] [address] Sánchez Hanley Bilirubin [Mass/Vol] 0.2 mg/dL Normal 0.2-1.0 [facility] Comment on above: Performed By: #### C MP, LIPID #### [facility] [address] [address] [address] Sánchez Hanley Calcium [Mass/Vol] 8.9 mg/dL Normal 8.5-10.1 [facility] Comment on above: Performed By: #### C MP, LIPID #### [facility] [address] [address] [address] Sánchez Hanley Chloride [Moles/Vol] 108 mmol/L Critically high 98-107 [facility] Comment on above: Performed By: #### C MP, LIPID #### [facility] [address] [address] [address] Sánchez Hanley CO2 [Moles/Vol] 27.7 mmol/L Normal 21.0-32.0 [facility] Comment on above: Performed By: #### C MP, LIPID #### [facility] [address] [address] [address] Sánchez Hanley Creatinine [Mass/Vol] 0.86 mg/dL Normal 0.70-1.30 [facility] Comment on above: Performed By: #### C MP, LIPID #### [facility] [address] [address] [address] Sánchez Hanley EGFR-AF TAJIK >60 Normal >=60 [facility] Comment on above: Performed By: #### C MP, LIPID #### [facility] [address] [address] [address] Sánchez Hanley EGFR-NON AF TAJIK >60 Normal >=60 [facility] Comment on above: Performed By: #### C MP, LIPID #### [facility] [address] [address] [address] Sánchez Hanley Globulin (S) [Mass/Vol] 3.3 g/dL Normal [facility] Comment on above: Performed By: #### C MP, LIPID #### [facility] [address] [address] [address] Sánchez Hanley Glucose [Mass/Vol] 96 mg/dL Normal 74-106 [facility] Comment on above: Performed By: #### C MP, LIPID #### [facility] [address] [place] [address] Dr. Sánchez Hanley Potassium [Moles/Vol] 4.1 mmol/L Normal 3.5-5.1 [facility] Comment on above: Performed By: #### C MP, LIPID #### [facility] [address] [place] [address] Dr. Sánchez Hanley Protein [Mass/Vol] 7.1 g/dL Normal 6.4-8.2 [facility] Comment on above: Performed By: #### C MP, LIPID #### [facility] [address] [place] [address] Dr. Sánchez Hanley Sodium [Moles/Vol] 142 mmol/L Normal 136-145 [facility] Comment on above: Performed By: #### C MP, LIPID #### [facility] [address] [address] [address] Sánchez Hanley Urea nitrogen [Mass/Vol] 20.0 mg/dL Critically high 7.0-18.0 [facility] Comment on above: Performed By: #### C MP, LIPID #### [facility] [address] [address] [address] Sánchez Hanley Urea nitrogen/Creatinine [Mass ratio] 23.3 mg/mg Normal [facility] Comment on above: Performed By: #### C MP, LIPID #### [facility] [address] [address] [address] Sánchez Hanley Vital Signs Date Time Vital Sign Value Performing Clinician Facility 12-10-2023 08:45-0400 Body height 176.53 cm [facility] 12-10-2023 08:45-0400 Body mass index (BMI) [Ratio] 26.8 kg/m2 [facility] 12-10-2023 08:45-0400 Body weight 83.54 kg [facility] 12-10-2023 08:45-0400 Diastolic blood pressure 88 mm[Hg] [facility] 12-10-2023 08:45-0400 Heart rate 93 /min [facility] 12-10-2023 08:45-0400 SaO2% (BldA) [Mass fraction] 96 % [facility] 12-10-2023 08:45-0400 Systolic blood pressure 134 mm[Hg] [facility] 08-28-2023 14:25-0400 Body height 176.53 cm [facility] 08-28-2023 14:25-0400 Body mass index (BMI) [Ratio] 26.4 kg/m2 [facility] 08-28-2023 14:25-0400 Body temperature 97.7 [degF] [facility] 08-28-2023 14:25-0400 Body weight 82.55 kg [facility] 08-28-2023 14:25-0400 Diastolic blood pressure 89 mm[Hg] [facility] 08-28-2023 14:25-0400 Heart rate 84 /min [facility] 08-28-2023 14:25-0400 Systolic blood pressure 149 mm[Hg] [facility] 2023 13:55-0400 Body height 176.53 cm [facility] 2023 13:55-0400 Body mass index (BMI) [Ratio] 26.6 kg/m2 [facility] 2023 13:55-0400 Body weight 83.17 kg [facility] 2023 13:55-0400 Diastolic blood pressure 83 mm[Hg] [facility] 2023 13:55-0400 Heart rate 91 /min [facility] 2023 13:55-0400 Systolic blood pressure 129 mm[Hg] [facility] 11-27-2022 09:30-0400 Body height 176.53 cm Naveen Delcid Other [facility] [employer] Other 11-27-2022 09:30-0400 Body mass index (BMI) [Ratio] 27.01 kg/m2 Naveen Delcid Other [employer] Other 11-27-2022 09:30-0400 Body weight 84.19 kg Naveen Delcid Other [employer] Other 11-27-2022 09:30-0400 Diastolic blood pressure 86 mm[Hg] Naveen Delcid Other [employer] Other 11-27-2022 09:30-0400 Systolic blood pressure 136 mm[Hg] Naveen Delcid Other [employer] Other 02-25-2022 14:45-0500 Body height 176.53 cm Naveen Delcid Other [employer] Other 02-25-2022 14:45-0500 Body mass index (BMI) [Ratio] 27.8 kg/m2 Naveen Delcid Other [employer] Other 02-25-2022 14:45-0500 Body weight 86.64 kg Naveen Delcid Other [employer] Other 02-25-2022 14:45-0500 Diastolic blood pressure 88 mm[Hg] Naveen Delcid Other [employer] Other 01-17-2023 14:45-0500 SaO2% (BldA) [Mass fraction] 98 % Naveen Delcid Other [employer] Other 02-25-2022 14:45-0500 Systolic blood pressure 138 mm[Hg] Naveen Delcid Other [employer] Other Encounters Encounter Date Encounter Type Care Provider Facility Start: 12-10-2023 Patient encounter status [facility] Start: 12-10-2023 End: 12-10-2023 ambulatory [facility] Work Phone: Start: 12-10-2023 End: 12-10-2023 Encounter for general adult medical examination without abnormal findings [facility] Start: 12-10-2023 End: 12-10-2023 Patient encounter procedure [facility] Physician [facility] Work Phone: Start: 08-28-2023 End: 08-28-2023 ambulatory [facility] Work Phone: Start: 08-28-2023 End: 08-28-2023 Patient encounter procedure [facility] Physician [facility] Work Phone: Start: 2023 End: 2023 ambulatory [facility] Work Phone: Start: 2023 End: 2023 Patient encounter procedure [facility] Physician [facility] Work Phone: Start: 05-04-2023 Non-patient / Non-visit [facility] Physician [facility] Work Phone: Start: 03-03-2023 End: 03-03-2023 ambulatory Naveen Delcid Other [employer] Other Start: 03-03-2023 Telephone encounter Naveen Delcid [facility] Start: 02-16-2023 End: 02-16-2023 ambulatory Naveen Delcid Other [employer] Other Start: 02-16-2023 Office outpatient vi sit 15 minutes Naveen Bhavin [facility] Start: 01-05-2023 End: 01-05-2023 ambulatory Naveen Bhavin Other [employer] Other Start: 01-05-2023 Telephone encounter Naveen Delcid [facility] Start: 12-04-2022 End: 12-04-2022 ambulatory Naveen Bhavin Other [employer] Other Start: 12-04-2022 Telephone encounter Naveen Delcid [facility] Start: 11-27-2022 End: 11-27-2022 ambulatory Naveen Bhavin Other [employer] Other Start: 11-27-2022 Encounter for genera l adult medical examination without abnormal findings Naveen Delcid [facility] Start: 11-27-2022 Periodic preventive med est patient 40-64yrs Naveen Bhavin [facility] Start: 11-06-2022 End: 11-06-2022 ambulatory Naveen Delcid Other [employer] Other Start: 11-06-2022 Telephone encounter Naveen Bhavin [facility] Start: 09-11-2022 End: 09-11-2022 ambulatory Maxim Serrano Other [employer] Other Start: 09-11-2022 Telephone encounter Maxim Zach [facility] Start: 07-23-2022 End: 07-23-2022 ambulatory Naveen Delcid Other [employer] Other Start: 07-23-2022 Telephone encounter Naveen Delcid [facility] Start: 05-27-2022 End: 05-27-2022 ambulatory Naveen Delcid Other [employer] Other Start: 05-27-2022 Telephone encounter Naveen Delcid [facility] Start: 04-15-2022 End: 04-15-2022 ambulatory Naveen Delcid Other [employer] Other Start: 04-15-2022 Telephone encounter Naveen Delcid [facility] Start: 02-25-2022 End: 02-25-2022 ambulatory Naveen Delcid Other [employer] Other Start: 02-25-2022 Office outpatient vi sit 15 minutes Naveen Delcid [facility] Start: 02-21-2022 Patient encounter status Naveen Delcid Other [employer] Other Start: 08-13-2021 Encounter for genera l adult medical examination without abnormal findings DR NAVEEN DELCID [facility] Start: 08-08-2021 End: 08-09-[address] NAVEEN DELCID Facility:[facility] Start: 08-08-2021 End: 08-09-2021 Encounter for general adult medical examination without abnormal findings DR NAVEEN DELCID Facility:[facility] Start: 08-07-2021 Adult health examination Maxim Serrano Other [employer] Other Start: 08-08-2020 Problem, abnormal examination Maxim Serrano Other [employer] Other Plan of Treatment Date Care Activity Detail Author [facility] Payers Date Payer Category Payer Unknown [id number] 1961 Private Health Insurance [id number] Unknown [facility] [id number] Social History Date Type Detail Facility Unknown if ever smoked [employer] Other Sex Assigned At Sex Assigned At Bir th [employer] Other Start: 1975 Sex Assigned At Male [facility] Clinical Notes 02-25-2022 to 03-03-2023 Note Date & Type Note Facility 03-03-2023 Evaluation note Encounter Date Diagnosis Assessment Notes Feb, Radiculopathy, lumbosacral region (ICD-10 - M54.17) [employer] Other 01-08-2024 Evaluation note* Encounter Date Diagnosis Assessment Notes Treatment Notes Treatment Clinical Notes Feb, Bronchitis (ICD-10 - J40) Take antibiotic as directed. If develop wheezing, chest tightness, itching, bad cough, blue skin color, seizures, swelling of face, lips, tongue, or throat report to ED. [employer] Other 11-27-2023 Evaluation note* Encounter Date Diagnosis Assessment Notes Treatment Notes Treatment Clinical Notes Dec, Radiculopathy, lumbosacral region (ICD-10 - M54.17) [employer] Other 10-19-2023 Evaluation note* Encounter Date Diagnosis [...] will send into pharmacy and check cost. [employer] Other 09-28-2023 Evaluation note* Encounter Date Diagnosis Assessment Notes Treatment Notes Treatment Clinical Notes Oct, Radiculopathy, lumbosacral region (ICD-10 - M54.17) [employer] Other 08-03-2023 Evaluation note* Encounter Date Diagnosis Assessment Notes Treatment Notes Treatment Clinical Notes Sep, Radiculopathy, lumbosacral region (ICD-10 - M54.17) [employer] Other 06-14-2023 Evaluation note* Encounter Date Diagnosis Assessment Notes Treatment Notes Treatment Clinical Notes Jul, Radiculopathy, lumbosacral region (ICD-10 - M54.17) [employer] Other 04-18-2023 Evaluation note* Encounter Date Diagnosis Assessment Notes Treatment Notes Treatment Clinical Notes May, Radiculopathy, lumbosacral region (ICD-10 - M54.17) [employer] Other 03-07-2023 Evaluation note* Encounter Date Diagnosis Assessment Notes Treatment Notes Treatment Clinical Notes Apr, Radiculopathy, lumbosacral region (ICD-10 - M54.17) [employer] Other 01-17-2023 Evaluation note* Encounter Date Diagnosis [...] educated regarding the risks and benefits of residential opioid use. He/She understands the associated risks with this medication and agrees that it provides reasonable benefit in regards to his/her pain control and level of function. This medication was refilled today. Feb, Seborrheic keratosis (ICD-10 - L82.1) Advised self referral to derm for removal. [employer] Other Evaluation noteNo Information[employer]ort [employer] Other Evaluation noteNo assessment information available [facility] Work Phone: Evaluation note* Diagnosis Onset Date Resolution Status Screening PSA (prostate specific antigen) acute Wellness examination acute [facility] Work Phone: Hisvbvl general Narrative - Reported* Type Description Date Medical History HSV-2 seropositive Medical History radiculopathy, lumbosacral regio n Medical History situational stress Medical History eustachian tube dysfunction Medical History dental infection [employer] Other Histafj general Narrative - Reported* Type Description Date [...] Comment : none, Problem Status : Active, [employer] Other Summary Purpose Family History Relationship Condition [...] check up Chief Complaint hard to swallow Chief Complaint Wellness Reason for Visit Screening PSA (prost ate specific antigen) Wellness examination Additional Source Comments (unrecognized sect ion and content) No Status Records Found INFORMATION SOURCE (unrecogn ized section and content) DATE CREATED AUTHOR 01/20/2022 [facility] REASON FOR VISIT (unrecogniz ed [...] Care Provider Active Start: May 04, 2023 RANDI Garcia Attending Provider Active Start : May 04, 2023 Team Status: Inactive Member Role Status Dates Naveen Delcid MD Primary Care Provide r, Attending Provider Active Start: 2023 End: 2023 Team Status: Inactive Member Role Status Dates Naveen Delcid MD Primary Care Provide r, Attending Provider Active Start: December 10, 2023 End: December 10, 2023 Goals (unrecognized section and content) Goals [...] BE BASED ON THE PRIMARY CLINICAL RECORDS. [facility] [employer] provides no warranty or guarantee of the accuracy or completeness of information in this document.
[2023-12-12 07:53] LABS: Anion Gap 14.3; Calcium 9.1 mg/dL (8.5-10.1); Chloride 107 mmol/L (98-107); Cholesterol 181 mg/dL (<=200); Estimated GFR (African America >60 (>=60 mL/min/1.73m^2); Estimated GFR (Non-African Ame >60 (>=60 mL/min/1.73m^2); Glucose 90 mg/dL (74-106); HDL Cholesterol 36 mg/dL (40-60); Potassium 4.3 mmol/L (3.5-5.1); Sodium 144 mmol/L (136-145); Triglycerides 237 mg/dL (<=150); VLDL CHOLESTEROL 47.4 mg/dL
[2023-12-12 08:14] LABS: Prostate Specific Antigen Scrn 0.19 ng/mL (<=4.00)
== END 2023-12-12 06:33 | disposition home or self-care (01) ==
LOC: LAB 06:33
PROVIDERS: PCP Family Medicine; Visit Provider Family Medicine
DX: Z00.00 Encounter for general adult medical examination without abnormal findings (principal); Z12.5 Encounter for screening for malignant neoplasm of prostate
CPT/HCPCS: 36415; 80048; 80061; G0103

== ENCOUNTER 2024-11-28 09:04 | Outpatient (OUT) | payer BC, SELFPAY ==
--- OUTSIDE RECORDS SUMMARY | 2024-11-28 09:12 | XMS_ITS | CCD ---
Author Organization [facility] Care Team Providers Care Tape Duplicator Name Role Phone DR NAVEEN DELCID Attending Unavailable BHAVIN, DR NAVEEN Brown Consulting Unavailable DR NAVEEN DELCID Primary Care Unavailable DR NAVEEN DELCID Admitting Unavailable Naveen Delcid Unavailable Maxim Serrano Unavailable Antonio ONEAL Attending Unavailable Antonio ONEAL Attending Unavailable Allergies Allergy Classification Reported Allergen(s) Allergy Type Date of Onset Reaction(s) Facility (7 sources) Acetaminophen / HYDROcodone Drug Allergy Unknown [facility] Rep[facility] (5 sources) Coconut extract Drug Allergy 05-05-19 24 Unknown Reaction [facility] (11 sources) Coconut Flavor Drug allergy Unknown [facility] Other (7 sources) Vicodin *ANALGESICS - OPIOID* Propensity to adverse reactions 05-20-19 14 Unknown [facility] Other (2 sources) patient allergy list reviewed by nurse or physicia Propensity to adverse reactions 04-08-19 Comment:Done [facility] Other (2 sources) Allergies Reconciled Propensity to adverse reactions Unknown [facility] Other (4 sources) Acetaminophen Drug Allergy 05-05-[address] [facility] Comment on above: Onset Date: 05/20/19 14 (4 sources) HYDROcodone Drug Allergy 05-05-[address] [facility] Comment on above: Onset Date: 05/20/19 14 Medications Current Medications Medication Drug Class(es) Dates Sig (Normalized) Sig (Original) amoxicillin 500 mg oral capsule (5 sources) [...] a day for 10 day(s) Feb, Active diclofenac sodium 50 mg delayed release oral tablet (1 source) Nonsteroidal Anti-inflammatory Drug Start: 04-21-2024 take 1 tablet by mouth every twelve hours as needed for pain Diclofenac Sodium 50 mg tablet,delayed release (DR/EC) Active 50 MG PO Every 12 hours as needed for pain April 21, 2024 12:00am 0.3 ml EPINEPHrine 1 mg/ml prefilled syringe (14 sources) alpha-Adrenergic Agonist, beta-Adrenergic Agonist, Catecholamine Start: 05-04-2023 Epinephrine Active IM May 04, 2023 12:00am as directed Injection prn EPINEPHrine 0.3 MG/0.3ML as directed Injection prn for 30 days Active EPINEPHrine 0.3 MG/0.3ML as directed Injection Active Epinephrine 0.3 mg/0.3 mL syringe (1 source) Start: 05-04-2023 Epinephrine 0.3 mg/0.3 mL syringe Active IM May 04, 2023 12:00am as directed Injection prn tadalafil 10 mg oral tablet (12 sources) Phosphodiesterase 5 Inhibitor Start: 09-23-2023 End: 04-21-2024 take 1 tablet by mouth every twenty-four hours Tadalafil 10 mg tablet Active 10 MG PO Daily as needed for sexual activity April 21, 2024 3:58pm administer approximately 30min before sexual activity; do not use more than 1 dose per 24hrs Start: 11-27-2022 take 1 tablet by erin th every twenty-four hours Cialis 10 MG 1 tablet as needed Orally Once a day for 30 days Nov, Active valACYclovir 1000 mg oral tablet (15 sources) Herpesvirus Nucleoside Analog DNA Polymerase Inhibitor, [...] (20 sources) Opioid Agonist Start: 2023 End: 04-14-2024 take 1 tablet by mouth once daily as needed for pain Oxycodone-Acetamino phen 5-325 mg tablet Discontinued 1 TAB PO Daily as needed for pain September 23, 2023 November 27, 2023 8:31am Start: 05-04-2023 End: 2023 take 1 tablet by mouth every six hours Oxycodone-Acetaminophen 5-325 mg tablet Discontinued 1 TAB PO Every 6 hours May 04, 2023 [...] hrs prn for 30 days Feb, Active cephalexin 500 mg oral capsule (3 sources) Cephalosporin Antibacterial Start: 08-28-2023 End: 12-10-2023 take 1 capsule by mouth three times daily Cephalexin 500 mg capsule Discontinued 500 MG PO Three times daily 29 08August 28, 2023 12:00am December 10, 2023 8:43am Problems Active Problems Problem Classification Problem Date Documented Date Episodic/Chronic Adjustment disorders (17 sources) Stress; Translations: [Reaction to severe stress, [...] left finger(s)] Episodic Other male genital disorders (10 sources) Other male erectile dysfunction; Translations: [Other [...] conditions (not mental disorders or infectious disease) (3 sources) Patient encounter status; Translations: [Encounter for screening for malignant neoplasm of prostate] 12-10-2023 Episodic Other skin disorders (1 source) Other seborrheic keratosis Episodic Other upper respiratory infections (2 sources) Acute maxillary sinusitis; Translations: [Acute maxillary sinusitis, unspecified] 09-03-2023 Episodic Otitis media and related conditions (20 sources) Dysfunction of eustachian tube; Translations: [Other specified disorders of Eustachian tube, unspecified ear] Episodic Residual codes; unclassified (19 sources) Tobacco user; Translations: [Tobacco use] Onset: [...] Spec 2.45 index Critically high 0.00-0.90 [facility] Comment on above: Result Comment: Nega tive <0.91 Equivocal 0.91 - 1.09 Positive >1.09 Note: Negative indicates no antibodies detected to HSV-1. Equivocal may suggest early infection. If clinically appropriate, retest at later date. Positive indicates antibodies detected to HSV-1. Performed By: #### H SV IGG #### [facility] [address] [place] [address] Dr. Sánchez Hanley HSV 2 IgG Type Spec 2.41 index Critically high 0.00-0.90 [facility] Comment on above: Result Comment: Nega tive <0.91 Equivocal 0.91 - 1.09 Positive >1.09 Note: Negative indicates no HSV-2 antibodies detected. Positive indicates HSV-2 antibodies detected. Equivocal and low positive HSV-2 screens (Index 0.91-5.00) may be false positive and are reflexed to supplemental testing in accordance with CDC guidelines. Performed By: #### H SV IGG #### [facility] [address] [place] [address] Dr. Sánchez Hanley HSV-2 IgG Supplemental Test Positive Abnormal Negative 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 Negative supplemental testing does not confirm the presence of IgG antibodies to HSV-2; recommend re-testing in 2 to 4 weeks if clinically indicated. Performed By: #### H SV IGG #### [facility] [address] [place] [address] Dr. Sánchez Hanley HERPES SIMPLEX 1/2 IGMon HSV, IgM I/II Combination <0.91 Normal 0.00-0.90 [facility] Comment on above: Result Comment: Nega tive <0.91 Equivocal 0.91 - 1.09 Positive >1.09 Effective November 04, 2021 HSV, IgM I/II Combination will be made non-orderable. [facility] offers [id number] HSV 1 and 2-Spec Ab, IgG w/Rfx and [id number] HSV JOHN. Performed By: #### H SVIGM #### [facility] [address] [place] [address] Dr. Sánchez Hanley CBC AUTO DIFFon 08-08-2021 BASO # 0.0 103/ul Normal 0.0-0.1 [facility] Comment on above: Performed By: #### C BC #### [facility] [address] [place] [address] Dr. Sánchez Hanley Basophils/100 WBC (Bld) 0.5 % Normal 0.2-2.0 [facility] Comment on above: Performed By: #### C BC #### [facility] [address] [place] [address] Dr. Sánchez Hanley EO # 0.1 103/ul Normal 0.0-0.7 [facility] Comment on above: Performed By: #### C BC #### [facility] [address] [place] [address] Dr. Sánchez Hanley Eosinophils/100 WBC (Bld) 1.6 % Normal 0.9-7.0 [facility] Comment on above: Performed By: #### C BC #### [facility] [address] [place] [address] Dr. Sánchez Hanley Erythrocyte distribution width (RBC) [Ratio] 12.0 % Normal 11.0-15.0 [facility] Comment on above: Performed By: #### C BC #### [facility] [address] [place] [address] Dr. Sánchez Hanley Hematocrit (Bld) [Volume fraction] 43.6 % Normal 42.0-54.0 [facility] Comment on above: Performed By: #### C BC #### [facility] [address] [place] [address] Dr. Sánchez Hanley Hemoglobin (Bld) [Mass/Vol] 14.5 g/dL Normal 14.0-18.0 [facility] Comment on above: Performed By: #### C BC #### [facility] [address] [place] [address] Dr. Sánchez Hanley IG # 0.02 10e3/ul Normal 0.00-0.03 [facility] Comment on above: Performed By: #### C BC #### [facility] [address] [place] [address] Dr. Sánchez Hanley IG % 0.3 % Normal 0.0-0.5 [facility] Comment on above: Performed By: #### C BC #### [facility] [address] [place] [address] Dr. Sánchez Hanley LYMPH # 2.3 103/ul Normal 1.2-3.8 [facility] Comment on above: Performed By: #### C BC #### [facility] [address] [place] [address] Dr. Sánchez Hanley Lymphocytes/100 WBC (Bld) 29.8 % Normal 20.5-60.0 [facility] Comment on above: Performed By: #### C BC #### [facility] [address] [place] [address] Dr. Sánchez Hanley MANUAL DIFF REQ NO Normal [facility] Comment on above: Performed By: #### C BC #### [facility] [address] [place] [address] Dr. Sánchez Hanley MCH (RBC) [Entitic mass] 29.8 pg Normal 25.9-34.0 [facility] Comment on above: Performed By: #### C BC #### [facility] [address] [place] [address] Dr. Sánchez Hanley MCHC (RBC) [Mass/Vol] 33.3 g/dL Normal 29.9-35.2 [facility] Comment on above: Performed By: #### C BC #### [facility] [address] [place] [address] Dr. Sánchez Hanley MCV (RBC) [Entitic vol] 89.5 fL Normal 80.0-94.0 [facility] Comment on above: Performed By: #### C BC #### [facility] [address] [place] [address] Dr. Sánchez Hanley MONO # 0.6 103/ul Normal 0.3-0.8 [facility] Comment on above: Performed By: #### C BC #### [facility] [address] [place] [address] Dr. Sánchez Hanley Monocytes/100 WBC (Bld) 7.8 % Normal 1.7-12.0 [facility] Comment on above: Performed By: #### C BC #### [facility] [address] [place] [address] Dr. Sánchez Hanley NEUT # 4.7 103/ul Normal 1.4-6.5 [facility] Comment on above: Performed By: #### C BC #### [facility] [address] [place] [address] Dr. Sánchez Hanley Neutrophils/100 WBC (Bld) 60.0 % Normal 43.0-75.0 [facility] Comment on above: Performed By: #### C BC #### [facility] [address] [place] [address] Dr. Sánchez Hanley Platelet mean volume (Bld) [Entitic vol] 9.0 fL Critically low 9.5-13.5 [facility] Comment on above: Performed By: #### C BC #### [facility] [address] [place] [address] Dr. Sánchez Hanley PLT 240 103/ul Normal 150-450 [facility] Comment on above: Performed By: #### C BC #### [facility] [address] [place] [address] Dr. Sánchez Hanley RBC 4.87 106/ul Normal 4.70-6.10 [facility] Comment on above: Performed By: #### C BC #### [facility] [address] [place] [address] Dr. Sánchez Hanley WBC 7.7 103/ul Normal 4.0-11.0 [facility] Comment on above: Performed By: #### C BC #### [facility] [address] [place] [address] Dr. Sánchez Hanley LIPID PROFILEon 08-08-2021 CHOL-HDL RATIO NORM SEE BELOW Normal [facility] Comment on above: Result Comment: 3.3 - 4.4 LOW RISK 4.4 - 7.1 AVERAGE RISK 7.1 - 11.0 MODERATE RISK >11.0 HIGH RISK Performed By: #### C MP, LIPID #### [facility] [address] [place] [address] Dr. Sánchez Hanley Cholesterol [Mass/Vol] 166 mg/dL Normal <=200 [facility] Comment on above: Performed By: #### C MP, LIPID #### [facility] [address] [address] [address] Sánchez Hanley Cholesterol in HDL [Mass/Vol] 34 mg/dL Critically low 40-60 [facility] Comment on above: Performed By: #### C MP, LIPID #### [facility] [address] [address] [address] Sánchez Hanley Cholesterol in LDL [Mass/Vol] 108.8 mg/dL Normal [facility] Comment on above: Performed By: #### C MP, LIPID #### [facility] [address] [address] [address] Sánchez Hanley Cholesterol.total/C holesterol in HDL [Mass ratio] 4.9 {ratio} Normal [facility] Comment on above: Performed By: #### C MP, LIPID #### [facility] [address] [place] [address] Dr. Sánchez Hanley HDL NORMAL > or = 60 mg/dl - LO W CARDIOVASCULAR RISK <40 mg/dl - HIGH CARDIOVASCULAR RISK Normal [facility] Comment on above: Performed By: #### C MP, LIPID #### [facility] [address] [place] [address] Dr. Sánchez Hanley LDL CALC NORMAL SEE BELOW Normal [facility] Comment on above: Result Comment: <100 mg/dl OPTIMAL 100 - 129 mg/dl NEAR OR ABOVE OPTIMAL 130 - 159 mg/dl BORDERLINE HIGH 160 - 189 mg/dl HIGH >190 mg/dl VERY HIGH Performed By: #### C MP, LIPID #### [facility] [address] [address] [address] Sánchez Hanley Triglyceride [Mass/Vol] 116 mg/dL Normal <=150 [facility] Comment on above: Performed By: #### C MP, LIPID #### [facility] [address] [address] [address] Sánchez Hanley VLDL CALC 23.2 mg/dL Normal [facility] Comment on above: Performed By: #### C MP, LIPID #### [facility] [address] [place] [address] Dr. Sánchez Hanley PROF 14(COMP METB)on 022 Albumin [Mass/Vol] 3.8 g/dL Normal 3.4-5.0 [facility] Comment on above: Performed By: #### C MP, LIPID #### [facility] [address] [place] [address] Dr. Sánchez Hanley Albumin/Globulin [Mass ratio] 1.2 {ratio} Normal [facility] Comment on above: Performed By: #### C MP, LIPID #### [facility] [address] [address] [address] Sánchez Hanley ALP [Catalytic activity/Vol] 91 U/L Normal 46-116 [facility] Comment on above: Performed By: #### C MP, LIPID #### [facility] [address] [place] [address] Dr. Sánchez Hanley ALT [Catalytic activity/Vol] 27 U/L Normal 16-63 [facility] Comment on above: Performed By: #### C MP, LIPID #### [facility] [address] [place] [address] Dr. Sánchez Hanley Anion gap [Moles/Vol] 10.4 mmol/L Normal [facility] Comment on above: Performed By: #### C MP, LIPID #### [facility] [address] [place] [address] Dr. Sánchez Hanley AST [Catalytic activity/Vol] 24 U/L Normal 15-37 [facility] Comment on above: Performed By: #### C MP, LIPID #### [facility] [address] [place] [address] Dr. Sánchez Hanley Bilirubin [Mass/Vol] 0.2 mg/dL Normal 0.2-1.0 [facility] Comment on above: Performed By: #### C MP, LIPID #### [facility] [address] [address] [address] Sánchez Hanley Calcium [Mass/Vol] 8.9 mg/dL Normal 8.5-10.1 [facility] Comment on above: Performed By: #### C MP, LIPID #### [facility] [address] [place] [address] Dr. Sánchez Hanley Chloride [Moles/Vol] 108 mmol/L Critically high 98-107 [facility] Comment on above: Performed By: #### C MP, LIPID #### [facility] [address] [address] [address] Sánchez Hanley CO2 [Moles/Vol] 27.7 mmol/L Normal 21.0-32.0 [facility] Comment on above: Performed By: #### C MP, LIPID #### [facility] [address] [address] [address] Sánchez Hanley Creatinine [Mass/Vol] 0.86 mg/dL Normal 0.70-1.30 [facility] Comment on above: Performed By: #### C MP, LIPID #### [facility] [address] [place] [address] Dr. Sánchez Hanley EGFR-AF BELGIAN >60 Normal >=60 [facility] Comment on above: Performed By: #### C MP, LIPID #### [facility] [address] [address] [address] Sánchez Hanley EGFR-NON AF BELGIAN >60 Normal >=60 [facility] Comment on above: Performed By: #### C MP, LIPID #### [facility] [address] [address] [address] Sánchez Hanley Globulin (S) [Mass/Vol] 3.3 g/dL Normal [facility] Comment on above: Performed By: #### C MP, LIPID #### [facility] [address] [address] [address] Sánchez Hanley Glucose [Mass/Vol] 96 mg/dL Normal 74-106 [facility] Comment on above: Performed By: #### C MP, LIPID #### [facility] [address] [address] [address] Sánchez Hanley Potassium [Moles/Vol] 4.1 mmol/L Normal 3.5-5.1 [facility] Comment on above: Performed By: #### C MP, LIPID #### [facility] [address] [address] [address] Sánchez Hanley Protein [Mass/Vol] 7.1 g/dL Normal 6.4-8.2 [facility] Comment on above: Performed By: #### C MP, LIPID #### [facility] [address] [address] [address] Sánchez Hanley Sodium [Moles/Vol] 142 mmol/L Normal 136-145 [facility] Comment on above: Performed By: #### C MP, LIPID #### [facility] [address] [address] [address] Sánchez Hanley Urea nitrogen [Mass/Vol] 20.0 mg/dL Critically high 7.0-18.0 [facility] Comment on above: Performed By: #### C MP, LIPID #### [facility] [address] [address] [address] Sánchez Hanley Urea nitrogen/Creatinine [Mass ratio] 23.3 mg/mg Normal [facility] Comment on above: Performed By: #### C MP, LIPID #### [facility] [address] [address] [address] Sánchez Hanley Vital Signs Date Time Vital Sign Value Performing Clinician Facility 04-21-2024 15:16-0400 Body height 176.53 cm [facility] 04-21-2024 15:16-0400 Body mass index (BMI) [Ratio] 27.2 kg/m2 [facility] 04-21-2024 15:16-0400 Body weight 84.99 kg [facility] 04-21-2024 15:16-0400 Diastolic blood pressure 77 mm[Hg] [facility] 04-21-2024 15:16-0400 Heart rate 87 /min [facility] 04-21-2024 15:16-0400 Systolic blood pressure 131 mm[Hg] [facility] 12-10-2023 08:45-0400 Body height 176.53 cm [facility] 12-10-2023 08:45-0400 Body mass index (BMI) [Ratio] 26.8 kg/m2 [facility] 12-10-2023 08:45-0400 Body weight 83.54 kg [facility] 12-10-2023 08:45-0400 Diastolic blood pressure 88 mm[Hg] [facility] 12-10-2023 08:45-0400 Heart rate 93 /min [facility] 12-10-2023 08:45-0400 SaO2% (BldA) [Mass fraction] 96 % [facility] 12-10-2023 08:45-0400 Systolic blood pressure 134 mm[Hg] [facility] 08-28-2023 14:25-0400 Body height 176.53 cm [facility] 08-28-2023 14:25-0400 Body mass index (BMI) [Ratio] 26.4 kg/m2 [facility] 08-28-2023 14:25-0400 Body temperature 97.7 [degF] [facility] 08-28-2023 14:25-0400 Body weight 82.55 kg [facility] 08-28-2023 14:25-0400 Diastolic blood pressure 89 mm[Hg] [facility] 08-28-2023 14:25-0400 Heart rate 84 /min [facility] 08-28-2023 14:25-0400 Systolic blood pressure 149 mm[Hg] [facility] 2023 13:55-0400 Body height 176.53 cm [facility] 2023 13:55-0400 Body mass index (BMI) [Ratio] 26.6 kg/m2 [facility] 2023 13:55-0400 Body weight 83.17 kg [facility] 2023 13:55-0400 Diastolic blood pressure 83 mm[Hg] [facility] 2023 13:55-0400 Heart rate 91 /min [facility] 2023 13:55-0400 Systolic blood pressure 129 mm[Hg] [facility] 11-27-2022 09:30-0400 Body height 176.53 cm Naveen Delcid Other [facility] Other 11-27-2022 09:30-0400 Body mass index (BMI) [Ratio] 27.01 kg/m2 Naveen Delcid Other [facility] Other 11-27-2022 09:30-0400 Body weight 84.19 kg Naveen Delcid Other [facility] Other 11-27-2022 09:30-0400 Diastolic blood pressure 86 mm[Hg] Naveen Delcid Other [facility] Other 11-27-2022 09:30-0400 Systolic blood pressure 136 mm[Hg] Naveen Delcid Other [facility] Other 02-25-2022 14:45-0500 Body height 176.53 cm Naveen Delcid Other [facility] Other 02-25-2022 14:45-0500 Body mass index (BMI) [Ratio] 27.8 kg/m2 Naveen Delcid Other [facility] Other 02-25-2022 14:45-0500 Body weight 86.64 kg Naveen Delcid Other [facility] Other 02-25-2022 14:45-0500 Diastolic blood pressure 88 mm[Hg] Naveen Delcid Other [facility] Other 02-25-2022 14:45-0500 SaO2% (BldA) [Mass fraction] 98 % Naveen Delcid Other [facility] Other 02-25-2022 14:45-0500 Systolic blood pressure 138 mm[Hg] Naveen Delcid Other [facility] Other Encounters Encounter Date Encounter Type Care Provider Facility Start: 04-21-2024 End: 04-21-2024 ambulatory [facility] Work Phone: Start: 04-21-2024 End: 04-21-2024 Patient encounter procedure [facility] Work Phone: Start: 02-19-2024 End: 02-19-2024 ambulatory [facility] Facility[facility] Start: 02-18-2024 End: 02-18-2024 ambulatory [facility] Start: 12-10-[address] [facility] Start: 12-10-2023 End: 12-10-2023 ambulatory [facility] Work Phone: Start: 12-10-2023 End: 12-10-2023 Encounter for general adult medical examination without abnormal findings [facility] Start: 12-10-2023 End: 12-10-2023 Patient encounter procedure [facility] Physician [facility] Work Phone: Start: 08-28-2023 End: 08-28-2023 ambulatory [facility] Work Phone: Start: 08-28-2023 End: 08-28-2023 Patient encounter procedure [facility] Physician [facility] Work Phone: Start: 2023 End: 2023 ambulatory [facility] Work Phone: Start: 2023 End: 2023 Patient encounter procedure [facility] Work Phone: Start: 05-04-2023 Non-patient / Non-visit [facility] Physician [facility] [employer] Work Phone: Start: 03-03-2023 End: 03-03-2023 ambulatory Naveen Delcid Other [facility] Other Start: 03-03-2023 Telephone encounter Naveen Delcid [facility] Start: 02-16-2023 End: 02-16-2023 ambulatory Naveen Delcid Other [facility] Other Start: 02-16-2023 Office outpatient vi sit 15 minutes Naveen Delcid [facility] Start: 01-05-2023 End: 01-05-2023 ambulatory Naveen Delcid Other [facility] Other Start: 01-05-2023 Telephone encounter Naveen Delcid [facility] Start: 12-04-2022 End: 12-04-2022 ambulatory Naveen Delcid Other [facility] Other Start: 12-04-2022 Telephone encounter Naveen Delcid [facility] Start: 11-27-2022 End: 11-27-2022 ambulatory Naveen Delcid Other [facility] Other Start: 11-27-2022 Encounter for genera l adult medical examination without abnormal findings Naveen Bhavin [facility] Start: 11-27-2022 Periodic preventive med est patient 40-64yrs Naveen Delcid [facility] Start: 11-06-2022 End: 11-06-2022 ambulatory Naveen Delcid Other [facility] Other Start: 11-06-2022 Telephone encounter Naveen Delcid [facility] Start: 09-11-2022 End: 09-11-2022 ambulatory Maxim Serrano Other [facility] Other Start: 09-11-2022 Telephone encounter Maxim Zach [facility] Start: 07-23-2022 End: 07-23-2022 ambulatory Naveen Bhavin Other [facility] Other Start: 07-23-2022 Telephone encounter Naveen Delcid [facility] Start: 05-27-2022 End: 05-27-2022 ambulatory Naveen Delcid Other [facility] Other Start: 05-27-2022 Telephone encounter Naveen Delcid [facility] Start: 04-15-2022 End: 04-15-2022 ambulatory Naveen Delcid Other [facility] Other Start: 04-15-2022 Telephone encounter Naveen Delcid [facility] Start: 02-25-2022 End: 02-25-2022 ambulatory Naveen Delcid Other [facility] Other Start: 02-25-2022 Office outpatient vi sit 15 minutes Naveen Delcid [facility] Start: 02-21-2022 Patient encounter status Naveen Delcid Other [facility] Other Start: 08-13-2021 Encounter for genera l adult medical examination without abnormal findings DR NAVEEN DELCID [facility] Start: 08-08-2021 End: 08-09-[address] NAVEEN DELCID Facility:[facility] Start: 08-08-2021 End: 08-09-2021 Encounter for general adult medical examination without abnormal findings DR NAVEEN DELCID Facility:[facility] Start: 08-07-2021 Adult health examination Maxim Serrano Other [facility] Other Start: 08-08-2020 Problem, abnormal examination Maxim Serrano Other [facility] Other Plan of Treatment Date Care Activity Detail Author [facility] Payers Date Payer Category Payer Unknown [id number] 1975 Unknown [id number] 1975 Unknown [id number] 1959 Private Health Insurance [id number] Self-pay Unknown [facility] [id number] Social History Date Type Detail Facility Unknown if ever smoked [facility] Other Sex Assigned At Sex Assigned At th [facility] Other Start: 1975 Sex Assigned At Male F [facility] Start: 04-21-2024 Tobacco smoking status NHIS Smoker (finding) [facility] Start: 04-21-2024 Sex Male (finding) [facility] Clinical Notes 02-25-2022 to 03-03-2023 Note Date & Type Note Facility 03-03-2023 Evaluation note Encounter Date Diagnosis Assessment Notes Feb, Radiculopathy, lumbosacral region (ICD-10 - M54.17) [facility] Other 01-08-2024 Evaluation note* Encounter Date Diagnosis Assessment Notes Treatment Notes Treatment Clinical Notes Feb, Bronchitis (ICD-10 - J40) Take antibiotic as directed. If develop wheezing, chest tightness, itching, bad cough, blue skin color, seizures, swelling of face, lips, tongue, or throat report to ED. [facility] Other 11-27-2023 Evaluation note* Encounter Date Diagnosis Assessment Notes Treatment Notes Treatment Clinical Notes Dec, Radiculopathy, lumbosacral region (ICD-10 - M54.17) [facility] Other 10-19-2023 Evaluation note* Encounter Date Diagnosis [...] will send into pharmacy and check cost. [facility] Other 09-28-2023 Evaluation note* Encounter Date Diagnosis Assessment Notes Treatment Notes Treatment Clinical Notes Oct, Radiculopathy, lumbosacral region (ICD-10 - M54.17) [facility] Other 08-03-2023 Evaluation note* Encounter Date Diagnosis Assessment Notes Treatment Notes Treatment Clinical Notes Sep, Radiculopathy, lumbosacral region (ICD-10 - M54.17) [facility] Other 06-14-2023 Evaluation note* Encounter Date Diagnosis Assessment Notes Treatment Notes Treatment Clinical Notes Jul, Radiculopathy, lumbosacral region (ICD-10 - M54.17) [facility] Other 04-18-2023 Evaluation note* Encounter Date Diagnosis Assessment Notes Treatment Notes Treatment Clinical Notes May, Radiculopathy, lumbosacral region (ICD-10 - M54.17) [facility] Other 03-07-2023 Evaluation note* Encounter Date Diagnosis Assessment Notes Treatment Notes Treatment Clinical Notes Apr, Radiculopathy, lumbosacral region (ICD-10 - M54.17) [facility] Other 01-17-2023 Evaluation note* Encounter Date Diagnosis [...] educated regarding the risks and benefits of senior care opioid use. He/She understands the associated risks with this medication and agrees that it provides reasonable benefit in regards to his/her pain control and level of function. This medication was refilled today. Feb, Seborrheic keratosis (ICD-10 - L82.1) Advised self referral to derm for removal. [facility] Other Evaluation noteNo InformationNort [employer] Other Evaluation noteNo assessment information available [facility] Work Phone: Evaluation note* Diagnosis Onset Date Resolution Status Screening PSA (prostate specific antigen) acute Wellness examination acute [facility] Work Phone: History general Narrative - Reported* Type Description Date Medical History HSV-2 seropositive Medical History radiculopathy, lumbosacral regio n Medical History situational stress Medical History eustachian tube dysfunction Medical History dental infection [place] [employer] Other History general Narrative - Reported* Type [...] Comment : none, Problem Status : Active, [facility] Other Summary Purpose Family History Relationship Condition [...] PSA (prost ate specific antigen) Wellness examination Chief Complaint Admit Date Med f/u April 21, 2024 3:1 3pm Additional Source Comments (unrecognized sect ion and content) No Status Records FoundNo Status Records Found INFORMATION SOURCE (unrecogn ized section and content) DATE CREATED AUTHOR 01/20/2022 [facility] DATE CREATED AUTHOR AUTHOR'S ORGANIZ ATION 02/23/2024 [facility] REASON FOR VISIT (unrecogniz ed section and [...] December 10, 2023 End: December 10, 2023 Team Status: Inactive Member Role Status Dates Naveen Delcid MD Primary Care Provide r, Attending Provider Active Start: April 21, 2024 End: April 21, 2024 Goals (unrecognized section and content) Goals may [...] BE BASED ON THE PRIMARY CLINICAL RECORDS. [employer] provides no warranty or guarantee of the accuracy or completeness of information in this document.
--- NOTE | 2024-11-28 09:25 | XR_ITS ---
[facility] [place] [id number] Patient Name: BHAVNA COLEMAN MRN: [id number] date: 1975 Sex: M Assigned Patient Location: [facility] Current Patient Location: [facility] Accession/Order Number: [id number] Exam Date: 11/28/2024 09:20 Report Date: 11/28/2024 12:38 At the request of: NAVEEN ACEVEDO MD Procedure: XR lumbar spine 2-3V LUMBAR SPINE - 2 views COMPARISON: 04/27/2020 CLINICAL DATA: Chronic back pain with left lower extremity radiculopathy. Weightbearing AP and lateral views were obtained. There is subtle dextroscoliotic curvature. No acute compression fractures are identified. There is continued minimal retrolisthesis of L1 on L2, L2 on L3 and L3 on L4. There is disc space narrowing from L1-2 through L4-5. Endplate spurring is seen. There is lower lumbar facet hypertrophy. The SI joints are intact. No paraspinal soft tissue abnormalities are visualized. XR/XR lumbar spine 2-3V IMPRESSION: SUBTLE SCOLIOSIS AND DEGENERATIVE CHANGES, DESCRIBED. Impression dictated by: Torri Garza M.D. 11/28/2024 12:38 PM Dictation Location: [place] [address] Electronically authenticated by: [id number] Y Date: 11/28/2024 12:38
== END 2024-11-28 09:05 | disposition home or self-care (01) ==
LOC: RAD 09:09
PROVIDERS: PCP Family Medicine; Visit Provider Family Medicine
DX: M54.17 Radiculopathy, lumbosacral region (principal); M54.50 Low back pain, unspecified; M41.86 Other forms of scoliosis, lumbar region; M51.369 Other intervertebral disc degeneration, lumbar region without mention of lumbar back pain or lower extremity pain
CPT/HCPCS: 72100